=== PATIENT | female | born 1970 | race Caucasian/White ===

== ENCOUNTER 2024-01-29 22:30 | Emergency (ER) | payer MEDICAID, OTHER ==
[~2024-01-29] VITALS: Ht 160 cm; Wt 77.1 kg
[~2024-01-29 22:30] MED LIST: FERR-252 PO
--- NOTE | 2024-01-29 22:30 | NUR ---
BIBA ALS TO 11
[2024-01-29 22:34] VITALS: BP 134/76; PULSE 70; RESP 16; TEMP 98.1; O2SAT 96
--- NOTE | 2024-01-29 22:55 | NUR ---
FAMILY MEMBER AT BEDSIDE
--- NOTE | 2024-01-29 23:01 | NUR ---
SEEN AND EXAMINED BY SAI WITH ORDERS, AND CARRIED OUT.
[2024-01-29 23:18] LABS: APPEARANCE,URINE CLEAR (CLEAR); BILIRUBIN,URINE NEGATIVE (NEGATIVE); BLOOD, URINE TRACE-I (NEGATIVE); COLOR,URINE YELLOW (YELLOW); LEUKOCYTE ESTERASE ,URINE TRACE (NEGATIVE); NITRITE, URINE NEGATIVE (NEGATIVE); PROTEIN,URINE NEGATIVE (NEGATIVE); UGLUCOSE NEGATIVE (NEGATIVE); UROBILINOGEN,URINE 0.2 EU/dL (0.2 - 1)
[2024-01-29 23:22] LABS: BACTERIA,URINE 10-30 (MOD) /HPF (None Seen); MUCUS,URINE 1+ /LPF (None Seen); RBC,URINE 0-5 /HPF (0-5); SQUAMOUS EPITHELIAL CELL,UR 0-3 (FEW) /LPF (0-3 (FEW))
[2024-01-29] MEDS ORDERED: CEPH-588 PO (23:38)
--- NOTE | 2024-01-29 23:50 | NUR ---
ALL RESULTS BACK AND NOTED BY ERMD AND FOR D/C
[2024-01-30 00:10] VITALS: BP 121/80; PULSE 72; RESP 17; TEMP 36.66960; O2SAT 100
== END 2024-01-30 00:10 | disposition home or self-care (01) ==
LOC: MED 22:30
DX: N39.0 Urinary tract infection, site not specified (principal); R56.9 Unspecified convulsions; F41.9 Anxiety disorder, unspecified; F32.A Depression, unspecified; Z79.899 Other long term (current) drug therapy
CPT/HCPCS: 81001; 87086; 87186; 99283

== ENCOUNTER 2024-03-11 03:15 | Emergency (ER) | payer OTHER ==
[~2024-03-11] VITALS: Ht 170.2 cm; Wt 89.4 kg
[~2024-03-11 03:15] MED LIST changes: +CEPH-588 PO
[2024-03-11 03:19] VITALS: BP 139/87; PULSE 68; RESP 20; TEMP 97.2; O2SAT 99
[2024-03-11] MEDS ORDERED: LORazepam 2 MG/ML VIAL ONE (03:25)
[2024-03-11] MEDS ORDERED: levETIRAcetam 100 MG/ML VIAL IV ONE (03:26)
[2024-03-11] MEDS ORDERED: levETIRAcetam 1,000 MG in NACL 0.9% 100 ML IV ONE (03:30)
[2024-03-11] MEDS: LORazepam 2 MG/ML VIAL IVP ONE ×2 (03:30→03:36)
[2024-03-11] MEDS: levETIRAcetam 1,000 MG in NACL 0.9% 100 ML IV ONE (03:33)
[2024-03-11 03:40] LABS: BASOPHILS # (AUTO) 0.1 K/uL (0.00-0.22); BASOPHILS % (AUTO) 0.8 % (0.0-2.0); EOSINOPHILS # (AUTO) 0.3 K/uL (0-0.4); EOSINOPHILS % (AUTO) 3.6 % (0.0-4.0); HEMATOCRIT 37.3 % (36-48); HEMOGLOBIN 12.6 g/dL (12.0-16.0); LYMPHOCYTES # (AUTO) 3.5 K/uL (2.5-16.5); LYMPHOCYTES % (AUTO) 42.4 % (20.5-51.1); MEAN CORPUSCULAR HEMOGLOBIN 31 pg (27-31); MEAN CORPUSCULAR HGB CONC 34 g/dL (33-37); MEAN CORPUSCULAR VOLUME 90.6 fL (80-94); MONOCYTES # (AUTO) 0.6 K/uL (0.8-1.0); MONOCYTES % (AUTO) 6.9 % (1.7-9.3); NEUTROPHILS # (AUTO) 3.8 K/uL (1.8-7.7); NEUTROPHILS % (AUTO) 46.3 % (42.2-75.2); PLATELET COUNT (AUTO) 207 K/uL (140-450); RED BLOOD CELL COUNT(AUTO) 4.12 MIL/uL (4.20-5.40); RED CELL DISTRIBUTION WIDTH 15.6 % (11.6-13.7); WHITE BLOOD COUNT (AUTO) 8.2 K/uL (4.8-10.8)
[2024-03-11 03:51] LABS: ANION GAP 13.5 (8-16); CALCIUM 8.7 mg/dL (8.5-10.1); CREATININE 0.7 mg/dL (0.6-1.3); POTASSIUM 3.5 mmol/L (3.5-5.1)
[2024-03-11 06:06] VITALS: BP 109/53; PULSE 73; RESP 19; TEMP 97.2; O2SAT 96
== END 2024-03-11 06:06 | disposition home or self-care (01) ==
LOC: MED 03:15
DX: S51.812A Laceration without foreign body of left forearm, initial encounter (principal); R56.9 Unspecified convulsions; Z79.899 Other long term (current) drug therapy; Y04.8XXA Assault by other bodily force, initial encounter; Y93.89 Activity, other specified; Y92.89 Other specified places as the place of occurrence of the external cause; Y99.8 Other external cause status
CPT/HCPCS: 36415; 70450; 80048; 82948; 83605; 84484; 85025; 90471; 90715; 93005; 96365; 96375; 99285; J1953; J2060

== ENCOUNTER 2024-03-24 02:10 | Emergency (ER) | payer OTHER ==
[~2024-03-24] VITALS: Ht 165.1 cm; Wt 81.6 kg
[2024-03-24 02:12] VITALS: BP 124/68; PULSE 74; RESP 18; TEMP 97.9; O2SAT 98
[2024-03-24] MEDS: LORazepam 1 MG TAB PO ONE (02:20)
[2024-03-24] MEDS ORDERED: ATA25 PO (02:46)
[2024-03-24 02:51] VITALS: BP 124/68; PULSE 74; RESP 18; TEMP 97.9
[2024-03-24 02:52] VITALS: O2SAT 98
== END 2024-03-24 02:51 | disposition home or self-care (01) ==
LOC: MED 02:10
DX: F41.9 Anxiety disorder, unspecified (principal); F41.0 Panic disorder [episodic paroxysmal anxiety]; Z86.69 Personal history of other diseases of the nervous system and sense organs; Z79.899 Other long term (current) drug therapy
CPT/HCPCS: 99283